=== PATIENT | male | born 1965 | race Caucasian/White ===

== ENCOUNTER → 2022-01-16 08:59 | Outpatient (BNVA) | payer MEDICAID, SELFPAY | PROVIDERS: PCP Family Medicine; Visit Provider Surgery | DX: D50.9 Iron deficiency anemia, unspecified (principal); R63.4 Abnormal weight loss; R53.83 Other fatigue; F17.210 Nicotine dependence, cigarettes, uncomplicated | CPT/HCPCS: 99203 ==

== ENCOUNTER 2022-04-25 07:49 | Day surgery (SDC) | payer MEDICAID, SELFPAY ==
[2022-04-23 13:47] VITALS: BMI 19.6
[2022-04-25 08:12] VITALS: BP 104/67; PULSE 82; RESP 18; TEMP 36.4; O2SAT 98
[2022-04-25] MEDS: sodium chloride 0.9% 1,000 ML 30 ML IV (08:16)
--- NOTE | 2022-04-25 09:13 | W.PM.OPSFHP ---
Same Day Surgery H&P Indication for Procedure/HPI DATE OF PROCEDURE: April 25, 2022 CHIEF COMPLAINT/INDICATIONFOR SURGICAL PROCEDURE: Weight loss and anemia PREOP DIAGNOSIS: Nonintentional weight PLANNED PROCEDURE: Operation Date: 04/25/22 09:45 Proposed Procedures p Colonoscopy [id number]/R63.4/R53.83/D50.9(Not Applicable) - Kai Cano MD This is a pleasant 56 years old gentleman comes today for diagnostic EGD and colonoscopy because of the unintentional weight loss and concern of anemia ROS All systems have been reviewed negative except as for the above or per problem list. Medications/Allergies* Home Medications Medication Instructions Recorded Confirmed Type gabapentin 300 mg capsule 300 mg PO TID 01/16/22 04/25/22 History insulin glargine 100 unit/mL (3 20 unit SUBCUT QAM 01/16/22 04/25/22 History mL) subcutaneous pen (Lantus Solostar U-100 Insulin) metformin 500 mg tablet 1,000 mg PO BID 01/16/22 04/25/22 History duloxetine 30 mg capsule,delayed 30 mg PO DAILY 04/23/22 04/25/22 History release lovastatin 20 mg tablet 20 mg PO DAILY 04/23/22 04/25/22 History Allergies/Adverse Reactions Allergy/AdvReac Type Severity Reaction Status Date / Time No Known Allergies Allergy Verified 04/25/22 09:13 Current Medications: Generic Name Dose Route Start Last Admin Trade Name Freq PRN Reason Stop Dose Admin Sodium Chloride 1,000 mls @ 30 mls/hr 04/25/22 07:45 04/25/22 08:16 Sodium Chloride 0.9% IV 30 mls/hr .Q24H ARTURO Administration Pertinent History/Comorbid Conditions* Medical History (Updated 01/18/22 @ 08:45 by Kai Cano MD) Anemia Lack of energy Social History Smoking and tobacco status: current every day smoker Pertinent Exam Findings alert, oriented x 3, regular rate & rhythm and procedure specific exam findings (Abdominal exam nontender nondistended soft) Recommendations Surgery/Procedure today (Diagnostic EGD and colonoscopy) Coding Level of Care Code 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
--- NOTE | 2022-04-25 09:43 | ANES.PREANE2 ---
Pre-Anesthetic Assessment Height/Weight: Height 1.83 m Weight 65.771 kg Temp Pulse Resp BP Pulse Ox O2 Del Method 97.6 F 82 18 104/67 98 04/25/22 08:12 04/25/22 08:12 04/25/22 08:12 04/25/22 08:12 04/25/22 08:12 04/25/22 08:12 Preop Diagnosis: Nonintentional weight Operation Date: 04/25/22 09:45 Proposed Procedures p EGD(Not Applicable) - Kai Cano MD s Colonoscopy(Not Applicable) - Kai Cano MD Familial anesthetic complications: none Was Beta Vale taken within 24 hours: N/A Was Clonidine taken within 24 hours: N/A Last intake: Intake Last Liquid Date 04/24/22 Last Liquid Time 23:30 Last Solid Date 04/23/22 Last Solid Time 21:00 Social Tobacco and No alcohol Exam alert, oriented x 3 and regular rate & rhythm Airway Submandibular: within normal limits Cervical ROM: within normal limits Mallampati: Class II Dentition: false (upper) Comments: Comments: very poor dentition Pulmonary Chronic Obstructive Pulmonary Disease CV/HEM Anemia Metabolic Diabetes Mellitus and Hyperlipidemia Anesthetic Plan ASA status: 3 Anesthesia: MAC Medications/Allergies Home Medications Medication Instructions Recorded Confirmed Last Taken Type gabapentin 300 mg capsule 300 mg PO TID 01/16/22 04/25/22 04/25/22 History insulin glargine 100 unit/mL (3 20 unit SUBCUT QAM 01/16/22 04/25/22 04/24/22 History mL) subcutaneous pen (Lantus Solostar U-100 Insulin) metformin 500 mg tablet 1,000 mg PO BID 01/16/22 04/25/22 04/23/22 History duloxetine 30 mg capsule,delayed 30 mg PO DAILY 04/23/22 04/25/22 04/24/22 History release lovastatin 20 mg tablet 20 mg PO DAILY 04/23/22 04/25/22 04/24/22 History Allergies Allergy/AdvReac Type Severity Reaction Status Date / Time No Known Allergies Allergy Verified 04/25/22 09:13 Current Medications Generic Name Dose Route Start Last Admin Trade Name Freq PRN Reason Stop Dose Admin Sodium Chloride 1,000 mls @ 30 mls/hr 04/25/22 07:45 04/25/22 08:16 Sodium Chloride 0.9% IV 30 mls/hr .Q24H ARTURO Administration PFSH Anesthesia Medical History Anemia Lack of energy Social History Smoking and tobacco status: current every day smoker Data Anesthesia Cardiac Studies: No Data to Display
[2022-04-25 10:02] VITALS: BP 87/59; PULSE 78; RESP 18; TEMP 36.1; O2SAT 100
[2022-04-25 10:14] VITALS: BP 103/69; PULSE 80; RESP 16; O2SAT 97
--- NOTE | 2022-04-25 13:33 | ANE.PACU2 ---
Inpatient post-anesthesia follow up: Airway intact: Yes Vital signs: Temperature 97.0 F Pulse Rate 80 Respiratory Rate 16 Blood Pressure 103/69 Pulse Oximetry 97 Oxygen Delivery Me thod Room Air Oxygen Flow Rate Fraction of Inspir ed Oxygen Hydration adequate: Yes Nausea and vomiting: No Pain level: 1 Mental status: Baseline
== END 2022-04-25 10:34 | disposition home or self-care (01) ==
PROVIDERS: PCP Family Medicine; Visit Provider Surgery
PROC: 0DJ08ZZ Inspection of Upper Intestinal Tract, Via Natural or Artificial Opening Endoscopic (ICD-10-PCS; CPT 43235; 2022-04-25 09:45)
PROC: 0DJD8ZZ Inspection of Lower Intestinal Tract, Via Natural or Artificial Opening Endoscopic (ICD-10-PCS; CPT 45330; 2022-04-25 09:45)
DX: K29.50 Unspecified chronic gastritis without bleeding (principal); K29.80 Duodenitis without bleeding; D64.9 Anemia, unspecified; E11.9 Type 2 diabetes mellitus without complications; E78.5 Hyperlipidemia, unspecified; J44.9 Chronic obstructive pulmonary disease, unspecified; F17.200 Nicotine dependence, unspecified, uncomplicated; Z79.4 Long term (current) use of insulin; Z79.84 Long term (current) use of oral hypoglycemic drugs
CPT/HCPCS: 43239; 45330; 88305; 88342; J2704; J7030

== ENCOUNTER 2025-02-03 12:51 | Outpatient (CLI) | payer MEDICAID, SELFPAY ==
--- NOTE | 2025-02-03 12:57 | CT_ITS ---
WS: [id number] CT CHEST TECHNIQUE: Contrast enhanced CT of the chest with coronal and sagittal reformatted images. CLINICAL INFORMATION: VOCAL CORD PARALYSIS COMPARISON: None. DLP: 260.[address] scans at [facility] use at least one of these dose optimization techniques: automated exposure control; mA and/or kV adjustment per patient size (includes targeted exams where dose is matched to clinical indication); or iterative reconstruction. FINDINGS: Volume loss LEFT lung with RIGHT to LEFT mediastinal shift. LEFT hilar soft tissue mass with mediastinal invasion. Diffuse circumferential encasement and narrowing of the LEFT mainstem bronchus. Associated narrowing of the proximal LEFT upper and lower lobe bronchi. LEFT hilar mass measures approximately 3.1 x 4.1 x 4.6 cm AP by transverse by craniocaudal. Interstitial thickening throughout the LEFT lung with micronodularity suspicious for lymphangitic metastasis. Small LEFT pleural effusion. Retraction of the LEFT hilum with traction bronchiectasis in the LEFT upper lobe and LEFT lower lobe with en trapped fluid and subsegmental atelectasis. Bullae in the LEFT upper lobe with air-fluid level. Associated severe narrowing of the LEFT main pulmonary artery. Soft tissue mass encases the main stem bronchus 360 degrees and partially encases the thoracic esophagus and descending thoracic aorta. Few normal size AP window lymph nodes. RIGHT lung is well aerated. Mild chronic emphysematous changes. Slight fibrosis RIGHT lung apex. Normal caliber thoracic aorta. Normal caliber descending thoracic aorta. Celiac and SMA are patent in the upper abdomen. Adrenal glands are normal. Small esophageal hiatal hernia. Moderate thoracic kyphosis. Endplate Schmorl's nodes in the midthoracic spine. CT/CT chest w con* [id number] IMPRESSION: 1. Large LEFT hilar mass with mediastinal invasion and narrowing of the LEFT m ainstem bronchus. Findings compatible with neoplasm. See detailed discussion ab ove 2. Recommend further evaluation with pulmonary consult and bronchoscopy. 3. PET/CT could also be obtained in further evaluation.
--- NOTE | 2025-02-03 12:57 | CT_ITS ---
WS: [id number] CT NECK TECHNIQUE: Contrast-enhanced CT of the neck with coronal and sagittal reformatted images. CLINICAL INFORMATION: VOCAL CORD PARALYSIS COMPARISON: None. DLP: 158.[address] scans at [facility] use at least one of these dose optimization techniques: automated exposure control; mA and/or kV adjustment per patient size (includes targeted exams where dose is matched to clinical indication); or iterative reconstruction. FINDINGS: LEFT vocal cord paralysis with medial rotation of the arytenoid. Ballooning of the LEFT laryngeal ventricle. Recommend confirmation with endoscopy. Normal posterior nasopharynx. Normal parapharyngeal fat. Parotid glands are normal. Normal submandibular glands. Tongue base appears normal. Normal subglottic airway. Normal thyroid gland. Bilateral carotid bulb calcification. Moderate spondylitic changes cervical spine. No cervical lymphadenopathy. Partially visualized bronchiectasis with bulla formation and air-fluid level in the LEFT lung apex. See chest CT report for further description of the chest findings CT/CT neck w con* [id number] IMPRESSION: 1. LEFT vocal cord paralysis. 2. Partially visualized bronchiectasis with fluid and pleural thickening in th e LEFT upper lobe. This will be discussed on the concurrent chest CT.
[2025-02-03] MEDS: iohexol 350 mg/mL 500 mL Btl (per mL) IV ×2 (14:15)
== END 2025-02-03 12:52 | disposition home or self-care (01) ==
PROVIDERS: PCP Family Medicine; Visit Provider Specialist
DX: J38.00 Paralysis of vocal cords and larynx, unspecified (principal); J47.9 Bronchiectasis, uncomplicated; J92.9 Pleural plaque without asbestos; R93.89 Abnormal findings on diagnostic imaging of other specified body structures; I65.23 Occlusion and stenosis of bilateral carotid arteries; M47.892 Other spondylosis, cervical region
CPT/HCPCS: 70491; 71260